=== PATIENT | female | born 1975 | race Caucasian/White ===

== ENCOUNTER 2018-06-12 08:35 | Outpatient (CLI) | payer OTHER | END 2018-06-12 08:52 | disposition home or self-care (01) | LOC: MAMO-SONO 08:35 | DX: N60.11 Diffuse cystic mastopathy of right breast (principal); R74.0 Nonspecific elevation of levels of transaminase and lactic acid dehydrogenase [LDH]; Z12.31 Encounter for screening mammogram for malignant neoplasm of breast ==

== ENCOUNTER 2022-10-19 06:57 | Emergency (ER) | payer OTHER ==
[~2022-10-19] VITALS: Ht 231.1 cm; Wt 79.8 kg
== END 2022-10-19 14:02 ==
LOC: ER 06:57
DX: B34.9 Viral infection, unspecified (principal); Z20.822 Contact with and (suspected) exposure to COVID-19